=== PATIENT | female | born 1955 | race Two or more races ===

== ENCOUNTER 2019-02-01 09:18 | Emergency (ER) | payer SELFPAY ==
[~2019-02-01] VITALS: Ht 149.9 cm; Wt 55.1 kg
[2019-02-01 09:25] VITALS: Ht 149.9 cm; Wt 55.1 kg
[2019-02-01 10:26] VITALS: BP 153/102
== END 2019-02-01 10:26 | disposition home or self-care (01) ==
LOC: ED 09:18
DX: S05.01XA Injury of conjunctiva and corneal abrasion without foreign body, right eye, initial encounter (principal); I10 Essential (primary) hypertension; Z98.890 Other specified postprocedural states; X58.XXXA Exposure to other specified factors, initial encounter; Y93.89 Activity, other specified; Y92.89 Other specified places as the place of occurrence of the external cause; Y99.8 Other external cause status

== ENCOUNTER 2019-02-26 16:37 | Inpatient (IN) | payer MEDICAID ==
[~2019-02-26] VITALS: Ht 162.6 cm; Wt 57.0 kg
--- NOTE | 2019-02-26 16:47 | NUR ---
PT AMBULATED OUT TO LOBBY WITH STEADY GAIT AND NAD. FACIAL SYMMETRY NOTED. PT ABLE TO FOLLOW COMMANDS AND ANSWER ALL QUESTIONS
--- NOTE | 2019-02-26 19:24 | NUR ---
PT PRESENTED TO THE ED WITH C/O ALOC. PER THE DAUGHTER, THE PT HAS BEEN DISORIENTED SINCE SATURDAY MORNING. DAUGHTER STS, "SHE DIDN'T RECOGNIZE ONE OF HER GRANDCHILDREN". PT A/OX3, PT DOES NOT KNOW WHAT YEAR IT IS, STS IT IS 2015. DENIES ANY DIXON, DIZZINESS, BLURRY VISION. PT HAS FAMILY HX OF SCHIZOPHERNIA BUT DENIES HAVING SCHIZOPHERNIA HERSELF.
--- NOTE | 2019-02-26 19:47 | NUR ---
LINE STAKER AT BEDSIDE
--- NOTE | 2019-02-26 19:48 | NUR ---
DR. DRAKE AT BEDSIDE FOR MSE
[2019-02-26 19:56] LABS: UA SPECIFIC GRAVITY 1.025 (1.005-1.035); microscopic required? YES; urine erythrocyte NEGATIVE (NEGATIVE)
[2019-02-26 20:06] LABS: BASOPHIL % 0.5 % (0-2); PLATELET COUNT 312 x10^3mcL (130-400); RED CELL DISTRIBUTION WIDTH 12.5 % (11.5-14.5)
[2019-02-26 20:14] LABS: ALBUMIN 3.6 g/dL (3.4-5.0); ALKALINE PHOSPHATASE 60 U/L (46-116); ALT/SGPT 28 U/L (14-59); AST/SGOT 21 U/L (15-37); BILIRUBIN TOTAL 0.31 mg/dL (0.20-1.00); CALCIUM 9.4 mg/dL (8.5-10.1); CARBON DIOXIDE 26.4 mmol/L (21-32); CHLORIDE SERUM 102 mmol/L (98-107); CREATININE SERUM 0.7 mg/dL (0.6-1.0); GFR1 > 60 mL/min; LIPASE 156 IU/L (73-393); POTASSIUM SERUM 3.3 mmol/L (3.5-5.1); SODIUM SERUM 138 mmol/L (136-145); TOTAL PROTEIN, SERUM 7.9 g/dL (6.4-8.2)
[2019-02-26 20:39] LABS: GLUCOSE SERUM 153 mg/dL (74-106)
[2019-02-26 21:03] LABS: FREE T4 0.79 ng/dL (0.76-1.46)
[2019-02-26] MEDS ORDERED: HYDROCHLOROTHIA25 MG PO (21:26)
--- NOTE | 2019-02-26 21:45 | NUR ---
PER HECTOR ROLDAN TO ADMINISTER ABX WITHOUT BLOOD CULTURES ORDERED
--- NOTE | 2019-02-26 22:10 | NUR ---
DR. TIDWELL AT BEDSIDE SPEAKING WITH THE PT
--- NOTE | 2019-02-26 22:14 | NUR ---
REPORT GIVEN TO MAMI BUNDY FOR CONTINUITY OF CARE
[2019-02-26 22:20] LABS: HDL CHOLESTEROL 36 mg/dL (40-60); MAGNESIUM 1.6 mg/dL (1.8-2.4); PHOSPHOROUS 3.8 mg/dL (2.5-4.9)
[2019-02-26 22:21] LABS: CHOLESTEROL 235 mg/dL (<200); CHOLESTEROL/HDL RATIO 6.5; TRIGLYCERIDES 508 mg/dL (<150)
--- NOTE | 2019-02-26 22:27 | NUR ---
RECEIVED REPORT FROM KINSEY RN. PT IN NO ACUTE DISTRESS. DAUGHTER AT BEDSIDE. BP 221/108, HR 75. DR TIDWELL NOTIFIED VIA [employer]
[2019-02-26 22:33] VITALS: BP 221/108
--- NOTE | 2019-02-26 22:37 | NUR ---
RECEIVED PT FROM ED VIA EDGAR. ORIENTED PT TO ROOM AND SURROUNDINGS. IV NOTED TO LAC PATENT AND INTACT. TELE 19 PLACED ON PT READING NSR. INSTRUCTED PT ON THE USE OF CALL LIGHT FOR ASSISTANCE. ENDORSED PT TO PRIMARY NURSE MAMI
[2019-02-26 23:40] VITALS: BP 165/83
[2019-02-27 01:15] VITALS: BP 170/84
--- NOTE | 2019-02-27 01:15 | NUR ---
BP 170/84 AFTER IV HYDRALAZINE AND PO NORVASC. DR. TIDWELL AWARE. NO FURTHER ORDERS AT THIS TIME.
--- NOTE | 2019-02-27 03:13 | NUR ---
RESTING IN BED WITH EYES CLOSED. BREATHING EVEN AND UNLABORED. NO ACUTE DISTRESS NOTED. WILL CONTINUE TO MONITOR.
[2019-02-27 06:03] VITALS: BP 131/77
--- NOTE | 2019-02-27 06:14 | NUR ---
NO ACUTE CHANGES. WILL ENDORSE TO ONCOMING RN
[2019-02-27 07:30] LABS: BASOPHIL % 0.9 % (0-2); PLATELET COUNT 294 x10^3mcL (130-400); RED CELL DISTRIBUTION WIDTH 12.7 % (11.5-14.5)
[2019-02-27 07:33] LABS: CALCIUM 8.4 mg/dL (8.5-10.1); CARBON DIOXIDE 21.4 mmol/L (21-32); CHLORIDE SERUM 103 mmol/L (98-107); CREATININE SERUM 0.6 mg/dL (0.6-1.0); GFR1 > 60 mL/min; GLUCOSE SERUM 163 mg/dL (74-106); MAGNESIUM 1.8 mg/dL (1.8-2.4); POTASSIUM SERUM 3.6 mmol/L (3.5-5.1); SODIUM SERUM 137 mmol/L (136-145)
--- NOTE | 2019-02-27 07:50 | NUR ---
RC'D PT RESTING IN BED WITH NO APPARENT SIGNS OF DISTRESS. A/A/AO/X4, SPEECH CLEAR AND APPRORPIATE. DENIES DIXON/DIZZINESS. ON TELE, DENIES CHEST PAIN/PRESSURE. PALP PULSES. RESPIRATIONS EQUAL AND UNLABORED. LUNGS CTA. ON RA, DENIES SOB. ABDOMEN SOFT AND NONTENDER. ACTIVE BS. DENIES N/V. VOIDS FREELY. AMBUALTORY. SKIN W/D/I. PT DENIES PAIN AT THIS TIME. IV PATENT AND INTACT. BED IN LOW POSITION. CALL LIGHT IN REACH. WILL CONTINUE TO MONITOR
[2019-02-27 08:15] VITALS: BP 129/72
--- NOTE | 2019-02-27 08:35 | NUR ---
AM MEDICATIONS GIVEN. PT TOLERATED WELL. RESPIRATIONS EQUAL AND UNLABNORED.ON RA, DENIES SOB. PT DENIES PAIN AT THIS TIME. BED IN LOW POSIOTION. CALL LIGHT IN REACH. BEATA CONTINUE TO MONITOR
--- NOTE | 2019-02-27 11:21 | NUR ---
PT RESTING IN BED WITH NO APPARENT SIGNS OF DISTRESS. RESPIRATIONS EQUAL AND UNLABORED. ON RA, DENMIES SOB. PT DENIES PAIN AT THIS TIME. BED IN LOW POSITION. CALL LIGHT IN REACH., WILL CONTINUE TO NMONITOR
[2019-02-27 12:30] VITALS: BP 149/78
[2019-02-27 15:02] VITALS: Ht 162.6 cm; Wt 57.0 kg
[2019-02-27 16:50] VITALS: BP 160/80
--- NOTE | 2019-02-27 17:10 | NUR ---
PT RESTING IN BED WITH NO APPARENT SIGSN OF DISTRESS. ON TELE, DENIES CHEST PAIN/PRESSURE. RESPIRAITONS EQUAL AND UNLABORED. ON RA, DENIES SOB. VOIDS FREELY. AMBULATORY TO BRP. NO ACUTE SKIN CHANGES AT THIS TIME. PT DENIES PAIN AT THIS TIME. IV PATENT AND INTACT. BED IN LOW POSITION. CALL LIGHT IN REACH. WILL ENDORSE TO SENIOR TAX MANAGER RN
--- NOTE | 2019-02-27 20:30 | NUR ---
PT IN BED AWAKE VERBAL DENIES HEADACHE OR DIZZINESS, NO NEUROLOGICAL CHANGES ANSWERS QUESTION APPROPRIATELY AND FOLLOWS COMMANDS, GOOD HANDGRIPS, NO C/O PAIN OR DISCOMFORTS, NO DISTRESS LUNGS CTA, HANGED PREMIX FOLIC/THIAMINE BAG INDICATED, TELE MONITOR #19 INPLACED SR WITH DEPRESSED TWAVE, NO CP OR PRESSURE, INTERACTIVE VIDEO AUDIO TELE EVAL FOR 47 MIN COMPLETED, MD AWARE OF THE RESULT, SHIFT ASSESSMENT DONE, ATTENDED NEEDS CONT TO MONITOR.
[2019-02-27 20:37] VITALS: BP 154/80
--- NOTE | 2019-02-28 03:45 | NUR ---
NO NEUROLOGICAL CHANGES, AMBULATES TO THE BATHROOM, CHECKED AT INTERVALS.
[2019-02-28 04:59] VITALS: BP 150/81
[2019-02-28 06:16] LABS: BASOPHIL % 0.5 % (0-2); PLATELET COUNT 297 x10^3mcL (130-400); RED CELL DISTRIBUTION WIDTH 12.8 % (11.5-14.5)
--- NOTE | 2019-02-28 06:38 | NUR ---
PT SLEPT WELL DURING THE SHIFT, DENIES HEADACHE OR DIZZINESS, AAOX4 VERBAL FOLLOWS COMMANDS AMBULATES TO THE BATHROOM SLOW BY STEADY GAIT, IVF INFUSING NS @70CC/HR, IV ACCESS @ LAC PATENT NON INFIL, BS 160 MG/DL COVERED WITH 3UNITS REG INSU PER SLIDING SCALE, ATTENDED NEEDS CALL LIGHT AT REACH, CONT TO MONITOR.
[2019-02-28 06:55] LABS: CALCIUM 8.6 mg/dL (8.5-10.1); CHLORIDE SERUM 103 mmol/L (98-107); CREATININE SERUM 0.6 mg/dL (0.6-1.0); GFR1 > 60 mL/min; GLUCOSE SERUM 158 mg/dL (74-106); POTASSIUM SERUM 3.6 mmol/L (3.5-5.1); SODIUM SERUM 138 mmol/L (136-145)
--- NOTE | 2019-02-28 08:43 | NUR ---
AAO TIMES 4. TELE # 19 SR. LUNGS CTA. NO SOB. O2 SAT ON RA 95%. BS'S ACTIVE TIMES 4. ARREOLA STRONG, EXCEPT LEFT HAND MAPLE PRODUCTS MAKER SLIGHTLY WEAKER THAN RIGHT. PERIPHERAL PULSES PALPABLE. NO EDEMA. NO C/O PAIN. COOPERATIVE.
[2019-02-28 08:54] VITALS: BP 158/87
[2019-02-28] MEDS ORDERED: BAYER ASPIRIN R81 MG PO (11:28)
[2019-02-28] MEDS ORDERED: NATURE'S BLEND F1 MG PO (11:29)
[2019-02-28] MEDS ORDERED: THIAMINE HCL100 MG PO (11:31)
[2019-02-28 13:55] VITALS: BP 154/87
[2019-02-28 17:49] VITALS: BP 144/85
--- NOTE | 2019-02-28 17:53 | NUR ---
AAO TIMES 4. NO C/O PAIN. TELE # 19 SR. NO SOB. ARREOLA WITH SLIGHT LEFT SIDED WEAKNESS. VS'S STABLE. COOPERATIVE AND PLEASANT. WATCHING TV AND EATING DINNER.
--- NOTE | 2019-02-28 19:09 | NUR ---
PATIENT IV SITE NOT INTACT,EXTENSION TUBING APPLIED,IV SITE SECURED LAC,STILL GOOD.RESUMED IVF AT 70 CC/ HOUR NS.
--- NOTE | 2019-02-28 19:30 | NUR ---
SHIFT REASSESSMENT DONE.PATIENT ALERT AND ORIENTED AT START OF THE SHIFT.IV SITE SECURED NOW.SAYS AMBULATORY RESTROOM,REMINDED TO CONNECT CAPITAL CAMPAIGN FUNDRAISER WHEN DONE USING RESTROOM.TELE 19 SR.NO CHEST PAIN.SKIN INTACT.CALL LIGHT IN REACH.
[2019-02-28 20:24] VITALS: BP 151/81
--- NOTE | 2019-02-28 21:00 | NUR ---
ALL PM MEDS GIVEN,SWALLOWS WELL.BLOOD SUGAR 137.
--- NOTE | 2019-03-01 04:00 | NUR ---
PATIENT SLEEPING WELL AT NIGHT.MOVING ALL EXT WELL.
[2019-03-01 05:11] VITALS: BP 155/82
--- NOTE | 2019-03-01 05:57 | NUR ---
SLEPT WELL DURING THE NOC,MOVING ALL EXT WELL.NO WEAKNESS NOTED.BLOOD SUGAR 153,DECLINE RISS SCALE.
[2019-03-01 06:44] LABS: BASOPHIL % 0.3 % (0-2); PLATELET COUNT 299 x10^3mcL (130-400); RED CELL DISTRIBUTION WIDTH 12.2 % (11.5-14.5)
[2019-03-01 07:05] LABS: CALCIUM 8.7 mg/dL (8.5-10.1); CARBON DIOXIDE 22.7 mmol/L (21-32); CHLORIDE SERUM 102 mmol/L (98-107); CREATININE SERUM 0.6 mg/dL (0.6-1.0); GFR1 > 60 mL/min; GLUCOSE SERUM 138 mg/dL (74-106); MAGNESIUM 1.9 mg/dL (1.8-2.4); PHOSPHOROUS 3.7 mg/dL (2.5-4.9); POTASSIUM SERUM 3.5 mmol/L (3.5-5.1); SODIUM SERUM 135 mmol/L (136-145)
--- NOTE | 2019-03-01 07:35 | NUR ---
AAO TIMES 4. TELE # 19 SR. LUNGS CTA. NO SOB. O2 SAT ON RA 97%. BS'S ACTIVE TIMES 4. SLIGHT LEFT HAND SERVICE CREW SUPERVISOR WEAKNESS COMPARED TO RIGHT. PERIPHERAL PULSES PALPABLE. NO EDEMA. COOPERATIVE AND PLEASANT.
[2019-03-01 09:14] VITALS: BP 153/80
[2019-03-01 11:07] LABS: microscopic required? NO
[2019-03-01 13:12] LABS: UA SPECIFIC GRAVITY 1.025 (1.005-1.035)
[2019-03-01 13:13] LABS: urine erythrocyte NEGATIVE (NEGATIVE)
[2019-03-01 16:27] VITALS: BP 139/79
--- NOTE | 2019-03-01 18:22 | NUR ---
I CALLED DR DOSS ABOUT THE PROPOSED MRI OF HER BRAIN THAT WAS SUPPOSED TO BE ORDERED ACCORDING TO NEUROLOGY, AND HE SAID HE WOULD CHECK UP ON THAT.
--- NOTE | 2019-03-01 18:24 | NUR ---
AAO TIMES 4. TELE # 19 SR. VS'S STABLE. NO SOB. COOPERATIVE. INCONTINENT OF URINE AT TIMES. IV SITE LAC PATENT, CDI. NO C/O PAIN.
--- NOTE | 2019-03-01 19:16 | NUR ---
SHIFT REASSESSMENT DONE.REPORT FROM NOAH,SHE GETS STRESS INCONTINENCE.REMINDED PATIENT TO NOT WAIT A LONG TIME TO GO RESTROOM.BREATHING EASY.DINNER STILL AT BEDSIDE,POOR APPETITE.TELE 19 SR/ST.NO CHEST PAIN.MRI BRAIN TOMORROW.PATIENT AWARE.CALL LIGHT IN REACH.
--- NOTE | 2019-03-01 20:48 | NUR ---
PM MEDS GIVEN,ATB WITH NO INCIDENT.CALL LIGHT IN REACH.
[2019-03-01 21:32] VITALS: BP 157/83
--- NOTE | 2019-03-02 01:27 | NUR ---
MRI OF BRAIN AT 1230 NOON TODAY.
[2019-03-02 05:23] VITALS: BP 164/86
--- NOTE | 2019-03-02 06:10 | NUR ---
PATIENT IVF INFUSING.BLOOD SUGAR 163,DECLINE COVERAGE.WILL ENDORSE TO NEXT SHIFT.
[2019-03-02 06:18] VITALS: BP 148/80
--- NOTE | 2019-03-02 06:18 | NUR ---
PATIENT BLOOD PRESSURE RECHECKED.148/80
[2019-03-02 06:57] LABS: BASOPHIL % 0.3 % (0-2); PLATELET COUNT 292 x10^3mcL (130-400); RED CELL DISTRIBUTION WIDTH 12.4 % (11.5-14.5)
--- NOTE | 2019-03-02 07:10 | NUR ---
SEEN IN BED AAOX4. DENIES HEADACHE OR DIZZINESS. STATED FEEL BETTER. ON TELE# 19 NSR. STATED ABLE TO AMBULATE TO BATHROOM WITHOUT DIFFICULTY. VOIDS. IVF NS TO LAC INFUSING WELL AT 70ML/HR. PATIENT MADE AWARE OF MRI BRAIN SCHEDULED TODAY. CALL LIGHT PLACED WITHIN EASY REACH, SIDERAILS UP X2.
[2019-03-02 07:46] LABS: CALCIUM 9.1 mg/dL (8.5-10.1); CARBON DIOXIDE 23.7 mmol/L (21-32); CHLORIDE SERUM 99 mmol/L (98-107); CREATININE SERUM 0.6 mg/dL (0.6-1.0); GFR1 > 60 mL/min; GLUCOSE SERUM 147 mg/dL (74-106); POTASSIUM SERUM 3.2 mmol/L (3.5-5.1); SODIUM SERUM 135 mmol/L (136-145)
--- NOTE | 2019-03-02 08:59 | NUR ---
DENIES PAIN, AMBULATED TO BATHROOM WELL.
[2019-03-02 09:39] VITALS: BP 153/81
[2019-03-02 12:38] VITALS: BP 155/83
--- NOTE | 2019-03-02 13:09 | NUR ---
FINISHED NOTED 50% OF LUNCH, DENIES PAIN, DAUGHTERS AT BEDSIDE. AWATING FOR MRI BRAIN AT 1:30PM, PATIENT MADE AWARE.
--- NOTE | 2019-03-02 14:01 | NUR ---
OFF FLOOR VIA WHEELCHAIR FOR MRI.
--- NOTE | 2019-03-02 14:51 | NUR ---
BACK FROM MRI. NO ANY DISTRESS NOTED.
[2019-03-02 17:05] VITALS: BP 140/80
--- NOTE | 2019-03-02 18:07 | NUR ---
NO ANY DISTRESS THROUGHOUT SHIFT. DENIES HEADACHE OR DIZZINESS AT THIS TIME. AMBULATORY TO BATHROOM WITH STEADY GAIT. ALL SCHEDULED MEDS GIVEN. IVF NS AT 70ML/HR CONTINUED.
--- NOTE | 2019-03-02 20:00 | NUR ---
RECEIVED PT IN BED AWAKE, ALERT, ORIENTED X4. SPEECH CLEAR. ABLE TO MAKE NEEDS KNOWN. LUNG SOUNDS CLEAR. BREATHING EASILY ON ROOM AIR. BS ACTIVE IN ALL FOUR QUADS. NO ABD PAIN NOTED. VOIDING FREELY. IV INFUSING NS AT 70ML/HR TO LAC, SITE INTACT. PT ABLE TO AMBULATE WITHOUT ASSISTANCE. GAIT STEADY. SHIFT ASSESSMENT COMPLETED. CALL LIGHT WITHIN REACH. BED IS IN LOWEST POSITION. WILL CONTINUE TO MONITOR CLOSELY.
[2019-03-02 20:45] VITALS: BP 143/83
--- NOTE | 2019-03-03 | NUR ---
PT SLEPT WELL THROUGH OUT THE NIGHT. NO DISTRESS NOTED. IVF ONGOING. WILL CONTINUE TO MONITOR CLOSELY.
[2019-03-03 05:34] VITALS: BP 133/79
[2019-03-03 06:43] LABS: BASOPHIL % 0.6 % (0-2); PLATELET COUNT 284 x10^3mcL (130-400); RED CELL DISTRIBUTION WIDTH 12.1 % (11.5-14.5)
[2019-03-03 06:44] LABS: CALCIUM 8.8 mg/dL (8.5-10.1); CARBON DIOXIDE 24.8 mmol/L (21-32); CHLORIDE SERUM 100 mmol/L (98-107); CREATININE SERUM 0.5 mg/dL (0.6-1.0); GFR1 > 60 mL/min; GLUCOSE SERUM 139 mg/dL (74-106); POTASSIUM SERUM 3.2 mmol/L (3.5-5.1); SODIUM SERUM 136 mmol/L (136-145)
--- NOTE | 2019-03-03 06:48 | NUR ---
FSBS IS 128. NO COVERAGE. ALL NEEDS TENDED TO. WILL ENDORSE TO INCOMING SHIFT.
--- NOTE | 2019-03-03 08:10 | NUR ---
SITTING UP IN BED HAVING CCHO DIET FOR BREAKFAST, AAOX4. DENIES PAIN. TELE# 19 ST HR=97. ON CCHO DIET. BRP WITH STEADY GAIT. IVF NS TO LAC INFUSING WELL AT 70ML/HR. PLAN OF CARE DISCUSSED. CALL LIGHT PLACED WITHIN EASY REACH. SIDERAILS UP X2.
[2019-03-03 09:15] VITALS: BP 146/74
--- NOTE | 2019-03-03 10:00 | NUR ---
SEEN BY MARÍA APARICIO. PATIENT AND FAMILY MADE AWARE PLAN OF CARE.
--- NOTE | 2019-03-03 10:28 | NUR ---
MARÍA APARICIO CALLED TELE NEURO CONSULT. TELE NEURO COMPUTER IS AT PATIENT BEDSIDE, AWAITING FOR NEURO TO CALL BACK.
--- NOTE | 2019-03-03 11:44 | NUR ---
Nutrition Education Pt was provided w/ nutrition education on Heart Healthy Consistent Carbohydrate Nutrition Therapy. Handouts from [facility] were reviewed and provided. RD answered all of pt's questions. Contact information was also provided for future nutrition related questions. TONIE TREVINO
--- NOTE | 2019-03-03 11:56 | NUR ---
Initial Nutrition Assessment- Dx: Altered Mental Status, Subacute Cerebrovascular PMHx: HTN PSHx: Appendectomy, Cholecystectomy, Labs: (03/03) K 3.2L, BG 139H, Cre 0.5L, WBC 14.2H, H/H 11.4L/32L (02/26) TG 508H, CHOL 235H, LDLC 133H, HDLC 36L, HgA1c 7.9H Meds: D50%W, Glucophage, Humulin, Lactinex, Lipitor, Zofran Diet: CCHO diet x 4 days PO Intake: (02/28) 75% x 3 meals, (02/27) 95% x 3 meals Ht: 5'4 Wt: 126 lb, 57 kg BMI: 21.6 kg/m2 (Normal) IBW: 120 lb, 54.5 kg %IBW: 105 UBW: 130 lb Age: 63 yrs old/ Femlae Food Allergies: none Skin: WNL Neto: 19 Edema: none GI: Last BM 03/02/19 Per H&P, presents with altered level of consciousness for 4 days. Per patient's daughter, patient forgot family members' name and her thought process was incoherent. Pending MRI results per bed huddle discussion. Pt seen resting in bed w/ daughter at bedside. Pt reported of good appetite. She reported that she eats regular diet of mostly home cooked meals. She verbalized that she will now watch what she eats at home. She admits to not following Diabetic diet at home. Nutrition education was provided. Cardiac diet is warranted for elevated Cholesterol levels and HTN. MARÍA Rizzo informed of additional diet order. 1148 03/03. Problem with: N/V/D/C: none Problems with: Chewing: no Swallowing: no Current appetite: good Recent wt change: none %wt change: n/a Vitamin/Supplement use: none Special diet at home: none Physical activity: none, pt admits that she is able but she does not exercise at all. RD encouraged pt to engage in some form of exercise at home. Education: pt notified of [facility] diet and given a description of restrictions. Pt was provided w/ Heart Healthy Carbohydrate Controlled Nutrition Therapy. Please see Nutrition Education note for details. Estimated Nutritional Needs Based on actual body weight 57 kg Energy: 4612-0776 kcal/d (25-30 kcal/kg-maintenance) Protein: 46-57 g/d (08-1 g/kg-maintenance and preservation of lean body mass) Fluid: 6134-4801 ml/d (1 ml/kcal-fluid balance) or per doctor Nutrition Diagnosis Altered nutrition related labs r/t endocrine dysfunction AEB elevated BG lab value. Intervention 1. Recommend adding Cardiac Low CHOL Low Fat 2gm Na to current [facility] diet. Monitor/Evaluate Goal: PO intake at least 75% of estimated needs Monitor: PO intake, Labs, GI function F/U in 3-5 days as moderate risk (5/3-5/)
--- NOTE | 2019-03-03 11:56 | NUR ---
1. Recommend adding Cardiac Low CHOL Low Fat 2gm Na to current [facility] diet.
[2019-03-03 12:26] VITALS: BP 144/80
--- NOTE | 2019-03-03 13:46 | NUR ---
HAS NOT YET RECEIVED A CALL BACK FROM NEURO CONSULT. CALLED [phone] TO FOLLOW UP STATED THAT PATIENT IS A ROUTINE CASE WILL GET A CALL BACK BUT UNABLE TO GIVE A SPECIFIC TIME. PATIENT MADE AWARE.
--- NOTE | 2019-03-03 14:22 | NUR ---
PATIENT STATED HAVING CHEST PAIN RADIATING TO BACK AREA 6/10 ON PAIN SCALE. MORPHINE 2MG IVP X1 GIVEN PER EMAR, NO ADVERSE REACTION NOTED. HEPARIN DRIPS INFUSING AT 700 UNITS/HR PER PROTOCAL. PATIENT'S SON AT BEDSIDE. AWAITING FOR AMBULANCE FOR MEDICAL CERTIFICATION SPECIALIST.
--- NOTE | 2019-03-03 17:04 | NUR ---
FEBRILE 101.5, TYLENOL 650MG PO GIVEN. PATIENT DENIES PAIN. NOTED AMBULATORY TO BATHROOM WITH STEADY GAIT. NO FACIAL DROOLING, SPEECH CLEAR, ORIENTED X4.
[2019-03-03 17:38] VITALS: BP 146/80
--- NOTE | 2019-03-03 17:41 | NUR ---
RECEIVED A CALL FROM TELE NEURO STATED THAT WILL RESCHEDULE TOMORROW MORNING BETWEEN 8AM-11AM. WILL ENDORSE TO INCOMING SHIFT. PATIENT MADE AWARE.
--- NOTE | 2019-03-03 18:26 | NUR ---
DENIES PAIN OR DISCOMFORT AT THIS TIME. RECHECKED TEMP =99.5. TOLERATED CCHO DINNER WELL. STATED VOIDS FREELY. BRP WITH STEADY GAIT. ALL SCHEDULED MEDS GIVEN.
--- NOTE | 2019-03-03 18:52 | NUR ---
IV TO LAC LEAKING NO ERYTHEMA OR INFILTRATION NOTED, IV CATHETER REMOVED. NEW IV CATHETER#22 INSERTED TO LFA WITH GOOD BLD RETURNED AND FLUSHED WELL. IVF NS AT 70ML/HR CONTINUED.
--- NOTE | 2019-03-03 19:20 | NUR ---
RECEIVED PT FROM PREVIOUS SHIFT NURSE. PT AOX4. SPEECH CLEAR, ANSWERS QUESTIONS APPROPRIATELY. IV NOTED TO LFA, INTACT AND PATENT. DENIES CP/PRESSURE. DENIES SOB/DIFFICULTY BREATHING. BED IN LOWEST POSITION. CALL LIGHT WITHIN REACH. WILL CONTINUE TO MONITOR.
[2019-03-03 20:57] VITALS: BP 107/71
--- NOTE | 2019-03-03 23:25 | NUR ---
PT ANSWERS QUESTIONS APPROPRIATELY. SPEECH CLEAR. NO FACIAL DROOP NOTED. NO WEAKNESS NOTED TO B/L HAND RN BONE MARROW TRANSPLANT. WILL CONTINUE TO MONITOR.
--- NOTE | 2019-03-04 01:39 | NUR ---
PT RESTING IN BED. RR EVEN AND UNLABORED. NO ACUTE DISTRESS NOTED. CALL LIGHT WITHIN REACH. WILL CONTINUE TO MONITOR.
[2019-03-04 06:00] VITALS: BP 141/78
[2019-03-04 06:30] LABS: BASOPHIL % 0.8 % (0-2); PLATELET COUNT 313 x10^3mcL (130-400); RED CELL DISTRIBUTION WIDTH 12.1 % (11.5-14.5)
[2019-03-04 06:47] LABS: CALCIUM 8.8 mg/dL (8.5-10.1); CARBON DIOXIDE 25.7 mmol/L (21-32); CHLORIDE SERUM 100 mmol/L (98-107); CREATININE SERUM 0.5 mg/dL (0.6-1.0); GFR1 > 60 mL/min; GLUCOSE SERUM 133 mg/dL (74-106); POTASSIUM SERUM 3.4 mmol/L (3.5-5.1); SODIUM SERUM 135 mmol/L (136-145)
--- NOTE | 2019-03-04 07:40 | NUR ---
PATIENT RESTING IN BED, NO ACUTE DISTRESS NOTED. PATIENT DENIES PAIN. TELE MONITOR IN PLACE. NO EDEMA NOTED. PATIENT DENIES SOB. PATIENT IS AMBULATORY, STEADY GAIT NOTED. NS IV INFUSING TO LFA AT 70ML/HR, IV SITE CDI AND PATENT. CALL LIGHT WITHIN REACH, BED IN LOW POSITION, WILL CONTINUE TO MONITOR FOR CHANGES.
[2019-03-04 09:03] VITALS: BP 133/79
[2019-03-04 12:05] VITALS: BP 136/77
--- NOTE | 2019-03-04 12:40 | NUR ---
PATIENT HAS ORDERS FOR A CT HEAD & NECK. NEW IV INSERTED TO RFA 20G, IV SITE, CDI, AND PATENT. FAMILY AT BEDSIDE, CALL LIGHT WITHIN REACH, BED IN LOW POSITION, WILL CONTINUE TO MONITOR.
--- NOTE | 2019-03-04 14:10 | NUR ---
PATIENT WENT DOWN FOR CAT SCAN VIA WHEELCHAIR, IV TO LFA SALINE LOCK.
--- NOTE | 2019-03-04 14:35 | NUR ---
CALLED TO MARÍA APARICIO AND MADE AWARE THAT THE PATIENT FELL ON HER KNEES WHEN SHE CAME BACK FROM CT SCAN. SHE HAD ABRASION ON HER LT INNER ARM AND DENIES HITTING HER HEAD.
--- NOTE | 2019-03-04 14:35 | NUR ---
PATIENT ARRIVED FROM CT SCAN VIA WHEELCHAIR. SPLIT LEATHER DEPARTMENT SUPERVISOR NOTIFIED ME, THAT PATIENT FELL UPON TRANSFER FROM WHEELCHAIR TO BED, XRAY HAD HER BACK TURNED TO THE PATIENT AND DID NOT WITNESS FALL. PATIENT STATES SHE TRIED CATCHING HERSELF AND FELL ON HER HANDS AND KNEES, PATIENT STATES SHE IS UNSURE WHY SHE FELL. ABRAISION NOTED ON HER LEFT ARM. PATIENT DENIES HITTING HER HEAD OR BACK. PATIENT DENIES PAIN AT THIS TIME. CHARGE NURSE ROSENDO MADE AWARE. CHARGE NURSE ROSENDO WILL NOTIFY MARÍA APARICIO. CALL LIGHT WITHIN REACH, BED IN LOW POSITON, WILL CONTINUE TO MONITOR.
[2019-03-04 17:54] VITALS: BP 127/85
--- NOTE | 2019-03-04 19:00 | NUR ---
PATIENT IS RESTING IN BED, NO ACUTE DISTRESS NOTED. PATIENT ON ROOM AIR. PATIENT DENIES PAIN. NS IV INFUSING TO LFA AT 70ML/HR, IV SITE CDI, NO S/S OF INFILTRATION. CALL LIGHT WITHIN REACH, BED IN LOW POSITION.
--- NOTE | 2019-03-04 19:50 | NUR ---
PT. AWAKE, ALERT,ORIENTED X4. DENIES HEADACHE OR DIZZINESS. SPEECH CLEAR, CONVERSATION APPROPRIATE. NO FACIAL DROOPING NOTED. GENERALIZED WEAKNESS NOTED. ABLE TO AMBULATE W/ ASSIST. MULTIPLE KNIFE EDGE TRIMMER OPERATOR STRONG TO BUE. BREATH SOUNDS CLEAR THROUGHOUT LUNG VIGIL, RESP. RESP. EVEN, UNLABORED. NO SOB NOTED. ABD. SOFT AND ROUND, BOWEL SOUNDS ACTIVE. DENIES ABD. PAIN. IV SITE INTACT. NO EDEMA TO BLE. PEDAL PULSES STRONG. CALL LIGHT WITHIN REACH. BED LOW LAYING W/ ALARM ON.
[2019-03-04 21:38] VITALS: BP 153/81
--- NOTE | 2019-03-05 00:25 | NUR ---
PT. RESTIN QUIETLY, EYES CLOSED. APPEARS TO BE SLEEPING. CALL LIGHT REMAINS WITHIN REACH.
--- NOTE | 2019-03-05 01:44 | NUR ---
CHANGE IN ASSIGNMENT AT THIS TIME. PT. CARE ENDORSED OVER TO INCOMING RNJUAN.
--- NOTE | 2019-03-05 03:11 | NUR ---
TOOK OVER PATIENT CARE FROM NIHARIKA MCGINNIS, PATIENT APPEARS SLEEPING THIS TIME BREATHING EASY AND NONLABOR. WILL CONTINUE TO MONITOR.
[2019-03-05 05:16] LABS: RAPID PLASMA REAGIN Non Reactive (Non Reactive)
--- NOTE | 2019-03-05 05:16 | NUR ---
CHECKED AT INTERVALS FOR NEEDS AND SAFETY, ALL NEEDS ATTENDED.
[2019-03-05 06:00] VITALS: BP 158/86
[2019-03-05 07:01] LABS: CALCIUM 9.2 mg/dL (8.5-10.1); CARBON DIOXIDE 26.6 mmol/L (21-32); CHLORIDE SERUM 101 mmol/L (98-107); CREATININE SERUM 0.5 mg/dL (0.6-1.0); GFR1 > 60 mL/min; GLUCOSE SERUM 131 mg/dL (74-106); POTASSIUM SERUM 3.6 mmol/L (3.5-5.1); SODIUM SERUM 136 mmol/L (136-145)
--- NOTE | 2019-03-05 07:20 | NUR ---
AAO X4.DENIES ANY PAIN/DISCOMFORT.LUNGS CLEAR.ON SR ON THE MONITOR.IVF NS GOING AT 70 ML/HR INFUSING WELL.CALL LIGHT WITHIN REACH.INSTRUCTED TO CALL FOR ANY PAIN/DISCOMFORT.WILL CONTINUE TO MONITOR PT.
[2019-03-05 07:25] LABS: BASOPHIL % 0.9 % (0-2); PLATELET COUNT 340 x10^3mcL (130-400); RED CELL DISTRIBUTION WIDTH 11.9 % (11.5-14.5)
[2019-03-05 10:07] VITALS: BP 136/70
[2019-03-05 13:03] VITALS: BP 133/81
--- NOTE | 2019-03-05 15:26 | NUR ---
PT COMFORTABLY SLEEPING IN BED NO SIGNS OF DISTRESS.
[2019-03-05 17:20] VITALS: BP 150/82
--- NOTE | 2019-03-05 18:36 | NUR ---
NO SIG IFICANT CHANGE NOTED.WILL ENDORSE TO NEXT SHIFT.
--- NOTE | 2019-03-05 19:34 | NUR ---
PT. AWAKE, ALERT, ORIENTED X4. DENIES HEADACHE OR DIZZINESS. SPEECH CLEAR, CONVERSATION APPROPRIATE. BREATH SOUNDS CLEAR THROUGHOUT LUNG VIGIL,RESP. EVEN, UNLABORED. NO SOB NOTED. ABD. SOFT AND ROUND, BOWEL SOUNDS ACTIVE. IV SITE INTACT. SKIN INTACT. CALL LIGHT WITHIN REACH.
[2019-03-05 21:30] VITALS: BP 139/80
--- NOTE | 2019-03-06 00:14 | NUR ---
PT. SLEEPING. NO COMPLAINTS THUS FAR. NO NEURO DEFICITS NOTED THUS FAR. IVF INFUSING WELL, SITE INTACT. CALL LIGH REMAINS WITHIN REACH.
[2019-03-06 05:59] VITALS: BP 147/84
--- NOTE | 2019-03-06 06:09 | NUR ---
NO COMPLAINTS THROUGHOUT NIGHT. NO NEURO DEFICITS NOTED. PT. DOZING AT THIS TIME. IVF INFUSING WELL, SITE INTACT. CALL LIGHT WITHIN REACH. ERIN PT. CARE TO INCOMING NURSE.
[2019-03-06 06:14] LABS: BASOPHIL % 0.9 % (0-2); PLATELET COUNT 361 x10^3mcL (130-400); RED CELL DISTRIBUTION WIDTH 11.8 % (11.5-14.5)
[2019-03-06 06:25] LABS: CALCIUM 9.3 mg/dL (8.5-10.1); CARBON DIOXIDE 26.2 mmol/L (21-32); CHLORIDE SERUM 101 mmol/L (98-107); CREATININE SERUM 0.5 mg/dL (0.6-1.0); GFR1 > 60 mL/min; GLUCOSE SERUM 133 mg/dL (74-106); POTASSIUM SERUM 3.7 mmol/L (3.5-5.1); SODIUM SERUM 137 mmol/L (136-145)
--- NOTE | 2019-03-06 07:55 | NUR ---
AWAKE.ALERT AND ORIENTED. DENIES ANY PAIN AT THIS TIME. CALL LIGHT W/ IN REACH CONT. IV FLUIDS ORDERED.AMBULATED IN [facility] BATHROOM, ROSALVA WELL. AND VOIIDNG. NO ACUTE DISTRESS NOTED. WILL CONT. PLAN OF CARE.
[2019-03-06 08:34] VITALS: BP 144/83
[2019-03-06] MEDS ORDERED: PLA75 PO (09:51)
[2019-03-06] MEDS ORDERED: LIPITOR80 MG PO (09:51)
--- NOTE | 2019-03-06 10:00 | NUR ---
MAGALIE THE NURSE PRACTITIONER CAME IN HERE AND SEEN THE PT. W/ NEW ORDERS OK PT. TO GO HOME TODAY PT. MADE AWARE AND AWAITING FOR RIDE.
[2019-03-06 11:42] VITALS: BP 144/83
[2019-03-06 11:57] VITALS: BP 138/82
--- NOTE | 2019-03-06 12:20 | NUR ---
PT. WENT HOME W/ STABLE CONDITION PER W/C ACC. W/ HER DAUGHTER,DISCHARGED INSTRUCTIONS AND PRESCRIPTION GIVEN AND DISCUSSED TO PT. AND VERBALIZED UNDERSTANDING OF INSTRUCTIPNS GIVEN.NO ACUTE DISTRESS NOTED SCORTED BY SUPERVISOR OF OFFICIALS IN THE LOBBY.
== END 2019-03-06 12:26 | disposition home or self-care (01) | DRG 45 ==
LOC: ED 16:37 → DU 21:37
PROVIDERS: Emergency Medicine; Internal Medicine; ADMIT General Practice
DX: I63.81 Other cerebral infarction due to occlusion or stenosis of small artery (principal); G93.41 Metabolic encephalopathy; E11.65 Type 2 diabetes mellitus with hyperglycemia; E83.42 Hypomagnesemia; E87.6 Hypokalemia; N39.0 Urinary tract infection, site not specified; I16.0 Hypertensive urgency; R29.810 Facial weakness; I10 Essential (primary) hypertension; F10.10 Alcohol abuse, uncomplicated; E78.5 Hyperlipidemia, unspecified; Z68.24 Body mass index [BMI] 24.0-24.9, adult; Z79.84 Long term (current) use of oral hypoglycemic drugs
CPT/HCPCS: 82652; 82962; 84439; G0480; J0360; J0696; J3411; J3490; J7030; Q0092; Q9967